=== PATIENT | female | born 1990 | race Caucasian/White ===

== ENCOUNTER 2020-02-29 15:37 | Outpatient (CLI) | payer OTHER ==
[~2020-02-29] VITALS: Ht 167.6 cm; Wt 78.6 kg
[~2020-02-29 15:37] MED LIST: DOCU240C31 PO; IBUP-1222 PO; LABE100T6 PO; OXYC-302 PO; PREN1TAB60 PO
[2020-02-29 17:06] VITALS: BP 101/61
[2020-02-29] MEDS ORDERED: ASPI-515 PO (17:33)
== END 2020-02-29 17:41 | disposition home or self-care (01) ==
LOC: LDOP 15:37
PROVIDERS: ATTEND Obstetrics & Gynecology
DX: Z34.83 Encounter for supervision of other normal pregnancy, third trimester (principal); Z3A.37 37 weeks gestation of pregnancy
CPT/HCPCS: 59025; 76819; 99211; G0463

== ENCOUNTER 2020-03-15 05:44 | Inpatient (IN) | payer OTHER ==
[~2020-03-15] VITALS: Ht 170.2 cm; Wt 79.1 kg
[~2020-03-15 05:44] MED LIST changes: +ASPI-515 PO
[2020-03-15] MEDS ORDERED: CEFAZOLIN PMX 1GM/50ML 50 ML IVPB ONE (06:00)
[2020-03-15] MEDS ORDERED: ONDANSETRON 2MG/ML, 2ML IVPush ONE (06:00)
[2020-03-15] MEDS ORDERED: SODIUM CITRATE/CITRIC ACID 30 ML UDC PO ONE (06:00)
[2020-03-15] MEDS ORDERED: CALCIUM CARBONATE 500 MG TAB.CHEW PO PRN (06:00)
[2020-03-15] MEDS ORDERED: LACTATED RINGERS 1,000 ML IVBOLUS ONE (06:00)
[2020-03-15] MEDS ORDERED: METOCLOPRAMIDE 5 MG/ML, 2ML IV ONE (06:00)
[2020-03-15] MEDS ORDERED: METOCLOPRAMIDE 5 MG/ML, 2ML ONE (06:17)
[2020-03-15] MEDS ORDERED: SODIUM CITRATE/CITRIC ACID 30 ML UDC ONE (06:17)
[2020-03-15] MEDS ORDERED: NEWBORN KIT ONE (06:17)
[2020-03-15] MEDS ORDERED: OXYTOCIN 30U/ 0.9% NaCL 500ML 500 ML ONE (06:17)
[2020-03-15] MEDS: LACTATED RINGERS 1,000 ML IV SCH ×7 (06:30→22:32)
[2020-03-15 06:42] LABS: BASOPHILS # (AUTO) 0.02 x10^3/uL (0-0.1); BASOPHILS % (AUTO) 0 % (0-1); EOSINOPHILS # (AUTO) 0.08 x10^3/uL (0-0.4); EOSINOPHILS % (AUTO) 1 % (1-7); LYMPHOCYTES # (AUTO) 2.17 x10^3/uL (1-3.4); LYMPHOCYTES % (AUTO) 33 % (22-44); MD NO; MEAN CORPUSCULAR HEMOGLOBIN 30.4 pg (27.0-34.8); MEAN CORPUSCULAR HGB CONC 33.9 g/dL (32.4-35.8); MEAN CORPUSCULAR VOLUME 89.5 fL (80-100); MONOCYTES # (AUTO) 0.49 x10^3/uL (0.2-0.8); MONOCYTES % (AUTO) 8 % (2-9); NEUTROPHILS # (AUTO) 3.77 x10^3/uL (1.8-6.8); NEUTROPHILS % (AUTO) 58 % (42-75); PLATELET COUNT 107 x10^3/uL (130-400); RED BLOOD COUNT 3.68 x10^6/uL (3.82-5.3); RED CELL DISTRIBUTION WIDTH 13.5 % (9.6-15.2)
[2020-03-15] MEDS ORDERED: FENTANYL PF 100 MCG/2ML ONE (07:19)
[2020-03-15] MEDS ORDERED: EPHEDRINE 50 MG/ML, 1ML ONE (07:20)
[2020-03-15] MEDS ORDERED: OXYTOCIN 10 UNITS/ML, 1ML ONE ×2 (07:20→08:07)
[2020-03-15] MEDS ORDERED: CEFAZOLIN 1,000 MG ONE (07:20)
[2020-03-15] MEDS ORDERED: EPINEPHRINE 1 MG/ML, 1ML ONE (07:20)
[2020-03-15] MEDS ORDERED: KETOROLAC 30 MG/1 ML ONE (07:28)
[2020-03-15] MEDS ORDERED: MISOPROSTOL 200 MCG TABLET PR PRN (09:00)
[2020-03-15] MEDS ORDERED: CARBOPROST TROMETHAMINE 250 MCG/ML, 1ML IM PRN (09:00)
[2020-03-15] MEDS ORDERED: METHYLERGONOVINE 0.2 MG/ML IM PRN (09:00)
[2020-03-15] MEDS ORDERED: OXYcodone/APAP 5/325MG TABLET PO PRN (09:00)
[2020-03-15] MEDS: PRENATAL VIT/IRON/FA 1 EACH TABLET PO SCH (09:00)
[2020-03-15] MEDS ORDERED: ONDANSETRON 2MG/ML, 2ML IV PRN (09:00)
[2020-03-15] MEDS ORDERED: MEPERIDINE/PF 50 MG/ML IM PRN (09:00)
[2020-03-15] MEDS: KETOROLAC 30 MG/1 ML IV SCH ×3 (09:00→21:18)
[2020-03-15] MEDS: OXYTOCIN 30U/ 0.9% NaCL 500ML 500 ML IV SCH ×2 (10:10→18:38)
[2020-03-15] MEDS ORDERED: OXYcodone 5 MG/5 ML ORAL.SOL UDC ONE (11:26)
[2020-03-15] MEDS ORDERED: OXYcodone 5 MG/5 ML ORAL.SOL UDC PO PRN (11:30)
[2020-03-15 13:10] VITALS: BP 117/65
[2020-03-15 16:54] VITALS: BP 109/68
[2020-03-15 16:58] LABS: MEAN CORPUSCULAR HEMOGLOBIN 29.6 pg (27.0-34.8); MEAN CORPUSCULAR HGB CONC 33.1 g/dL (32.4-35.8); MEAN CORPUSCULAR VOLUME 89.3 fL (80-100); PLATELET COUNT 104 x10^3/uL (130-400); RED BLOOD COUNT 3.46 x10^6/uL (3.82-5.3); RED CELL DISTRIBUTION WIDTH 13.3 % (9.6-15.2)
[2020-03-15 16:59] LABS: BASOPHILS # (AUTO) 0.01 x10^3/uL (0-0.1); BASOPHILS % (AUTO) 0 % (0-1); EOSINOPHILS # (AUTO) 0.01 x10^3/uL (0-0.4); EOSINOPHILS % (AUTO) 0 % (1-7); LYMPHOCYTES # (AUTO) 1.73 x10^3/uL (1-3.4); LYMPHOCYTES % (AUTO) 18 % (22-44); MD NO; MEAN PLATELET VOLUME 12.5 fL (7.4-10.4); MONOCYTES # (AUTO) 0.46 x10^3/uL (0.2-0.8); MONOCYTES % (AUTO) 5 % (2-9); NEUTROPHILS # (AUTO) 7.57 x10^3/uL (1.8-6.8); NEUTROPHILS % (AUTO) 77 % (42-75)
[2020-03-15 20:15] VITALS: BP 109/66
[2020-03-15] MEDS: SIMETHICONE 80 MG CHEW TAB PO PRN (21:15)
[2020-03-15] MEDS: OXYcodone/APAP 5/325MG TABLET PO PRN (21:16)
[2020-03-15] MEDS: DOCUSATE 100 MG CAPSULE PO PRN (21:16)
[2020-03-16] MEDS: LACTATED RINGERS 1,000 ML IV SCH ×8 (00:38→22:32)
[2020-03-16 00:45] VITALS: BP 107/68
[2020-03-16] MEDS: SIMETHICONE 80 MG CHEW TAB PO PRN ×4 (03:15→21:15)
[2020-03-16] MEDS: KETOROLAC 30 MG/1 ML IV SCH ×4 (03:15→21:15)
[2020-03-16] MEDS: OXYcodone/APAP 5/325MG TABLET PO PRN (03:15)
[2020-03-16 03:24] VITALS: BP 110/74
[2020-03-16] MEDS: OXYTOCIN 30U/ 0.9% NaCL 500ML 500 ML IV SCH ×2 (04:38→14:38)
[2020-03-16 08:37] VITALS: BP 120/77
[2020-03-16] MEDS: DOCUSATE 100 MG CAPSULE PO PRN ×2 (09:15→21:16)
[2020-03-16] MEDS: FERROUS SULFATE 325 MG TABLET PO SCH ×2 (09:16→17:30)
[2020-03-16] MEDS: PRENATAL VIT/IRON/FA 1 EACH TABLET PO SCH (09:16)
[2020-03-16] MEDS: ACETAMINOPHEN 325 MG TABLET PO PRN ×3 (09:16→21:16)
[2020-03-16 19:55] VITALS: BP 129/84
[2020-03-17] MEDS: OXYTOCIN 30U/ 0.9% NaCL 500ML 500 ML IV SCH (00:38)
[2020-03-17] MEDS: LACTATED RINGERS 1,000 ML IV SCH ×2 (00:38)
[2020-03-17] MEDS: KETOROLAC 30 MG/1 ML IV SCH (01:19)
[2020-03-17] MEDS: ACETAMINOPHEN 325 MG TABLET PO PRN ×3 (01:19→12:31)
[2020-03-17 07:29] VITALS: BP 114/73
[2020-03-17] MEDS: PRENATAL VIT/IRON/FA 1 EACH TABLET PO SCH (08:31)
[2020-03-17] MEDS: DOCUSATE 100 MG CAPSULE PO PRN (08:31)
[2020-03-17] MEDS: FERROUS SULFATE 325 MG TABLET PO SCH (08:31)
[2020-03-17] MEDS: SIMETHICONE 80 MG CHEW TAB PO PRN (08:31)
[2020-03-17] MEDS ORDERED: DOCU-131 PO (08:52)
[2020-03-17] MEDS ORDERED: IBUP-1222 PO (08:52)
[2020-03-17] MEDS ORDERED: OXYC-302 PO (08:53)
[2020-03-17] MEDS ORDERED: FERR-51 PO (08:53)
[2020-03-17] MEDS ORDERED: IBUPROFEN 600 MG TABLET PO PRN (09:00)
== END 2020-03-17 12:36 | disposition home or self-care (01) | DRG 785 ==
LOC: LDIP 05:44 → 2NW 11:10
PROVIDERS: ADMIT Obstetrics & Gynecology; ATTEND Obstetrics & Gynecology
PROC: 10D00Z1 Extraction of Products of Conception, Low, Open Approach (ICD-10-PCS; principal; 2020-03-15)
PROC: 0UB70ZZ Excision of Bilateral Fallopian Tubes, Open Approach (ICD-10-PCS; 2020-03-15)
DX: O69.81X0 Labor and delivery complicated by cord around neck, without compression, not applicable or unspecified (principal); O34.211 Maternal care for low transverse scar from previous cesarean delivery; Z30.2 Encounter for sterilization; Z37.0 Single live birth; Z3A.39 39 weeks gestation of pregnancy
CPT/HCPCS: 36415; 82803; 85025; 86592; 86850; 86900; 88302; G0378; J0171; J0690; J1885; J2175; J3010; J2590; J7120